=== PATIENT | female | born 1960 | race Caucasian/White ===

== ENCOUNTER 2020-04-28 10:56 | Outpatient (CLI) | payer BC, SELFPAY ==
--- NOTE | 2020-04-28 09:30 | DI.RAD_ITS ---
EXAM: XR KNEE LT 2V AP,LAT and XR knee RT 2 V AP, LAT, and tunnel CLINICAL HISTORY: pain. TECHNIQUE: 2D digital imaging was performed. COMPARISON: CR XR KNEE RT 3V AP,LAT,GUME from 04/28/2020 FINDINGS: In the left knee, degenerative changes are present involving all 3 joint compartments characterized b y periarticular spurring and mild narrowing of both the medial femoral tibial joint and the patellofe moral joint. In the right knee, moderately severe degenerative changes are present. There is periarticular spurri ng involving all 3 joint compartments. Moderate narrowing of the medial femoral tibial joint space a nd marked narrowing of the patellofemoral joint space are noted. No acute fracture or dislocation is present. No joint effusion is seen. The bones are normally mine ralized. IMPRESSION: Osteoarthritis of the knees. Right greater than left. DATA REPOSITORY: RADIATION DOSE DELIVERED:
== END 2020-04-28 11:16 ==
PROVIDERS: PCP Family Medicine; Referring Provider Family Medicine; Visit Provider Orthopaedic Surgery
DX: M25.561 Pain in right knee (principal); M25.562 Pain in left knee; M17.0 Bilateral primary osteoarthritis of knee
CPT/HCPCS: 73562; 73560

== ENCOUNTER 2020-05-14 01:40 | Outpatient (CLI) | payer BC, SELFPAY ==
[2020-05-14 10:43] LABS: Abs Immature Grans 0.02 k/cumm (0.0-0.09); Absolute Basophil Count 0.05 k/cumm (0.0-0.2); Absolute Eosinophil Count 0.27 k/cumm (0.0-0.7); Absolute Lymphocyte Count 1.62 k/cumm (1.2-3.4); Absolute Monocyte Count 0.78 k/cumm (0.11-0.7); Absolute Neutrophil Count 7.74 k/cumm (1.2-6.7); Basophils % 0.5; Eosinophils % 2.6; HCT 42.7 % (36.0-46.0); HGB 13.9 g/dL (12.0-15.5); Immature Grans % 0.2 %; Lymphocytes % 15.5; Mean Corp. HGB Concentration 32.6 g/dL (32.0-36.0); Mean Corpuscular Hemoglobin 31.6 pg (27.0-33.0); Mean Platelet Volume 10.3 fL (8.0-11.0); Monocytes % 7.4; Neutrophils % 73.8; Platelet Count 207 x1000/uL (130-400); RBC Distribution Width 13.3 % (11.7-14.6); White Blood Cell Count 10.48 k/cumm (4.4-10.8)
== END 2020-05-14 02:00 ==
PROVIDERS: PCP Family Medicine; Visit Provider Orthopaedic Surgery
DX: M25.561 Pain in right knee (principal); M17.11 Unilateral primary osteoarthritis, right knee
CPT/HCPCS: 36415; 85025

== ENCOUNTER 2020-05-14 09:09 | Outpatient (CLI) | payer BC, SELFPAY ==
[2020-05-14 22:26] LABS: COVID-19 RT-PCR UVMMC Result Negative (Negative)
== END 2020-05-14 09:29 ==
PROVIDERS: PCP Family Medicine; Visit Provider Orthopaedic Surgery
DX: Z01.818 Encounter for other preprocedural examination (principal); Z11.59 Encounter for screening for other viral diseases
CPT/HCPCS: U0003

== ENCOUNTER 2020-05-17 10:39 | Inpatient (IN) | payer BC, SELFPAY ==
[2020-05-17] VITALS (12 sets, daily range): BP systolic 131–181; BP diastolic 51–98; PULSE 74–84; RESP 12–20; TEMP 36.2–37.4; O2SAT 90–99
[2020-05-17] MEDS: Lactated Ringers 1,000 ML 80 ML IV ×2 (11:45→16:30)
[2020-05-17] MEDS: Bupivacaine LIPOSOME/PF 133 MG/10 ML VIAL IJ (12:50)
[2020-05-17] MEDS: Bupivacaine 0.25% Pres-Free 30 ML VIAL (12:50)
[2020-05-17] MEDS: ceFAZolin 2 GM/50 ML BAG IVPB ×2 (13:16→17:50)
[2020-05-17] MEDS: Hydrogen Peroxide 3% 480 ML BTL (13:52)
--- NOTE | 2020-05-17 16:20 | DI.RAD_ITS ---
EXAM: XR KNEE RT 2V AP,LAT CLINICAL HISTORY: check total knee components in RR. TECHNIQUE: 2D digital imaging was performed. COMPARISON: CR XR KNEE RT 3V AP,LAT,GUME from 04/28/2020 CR XR KNEE LT 2V AP,LAT from 04/28/2020 FINDINGS: The patient is now status post right total knee replacement. The orthopedic hardware appears in good position. No acute fracture or dislocation is seen. Postsurgical changes are seen in the soft tiss ues. IMPRESSION: Status post right total knee replacement. DATA REPOSITORY: RADIATION DOSE DELIVERED:
[2020-05-17] MEDS: fentaNYL 100 MCG/2 ML VIAL IVP (17:07)
[2020-05-17] MEDS: POTASSIUM CHLORIDE/0.9% NACL 1,000 ML 125 MEQ IV (17:50)
--- NOTE | 2020-05-17 18:24 | NUR.NOTE ---
Nursing Note:1731- pt transferred from PACU to medsur floor via orthopedic bed. pt awake and VSS. in room.
[2020-05-17] MEDS: oxyCODONE-CR 10 MG TABCR PO (20:29)
[2020-05-17] MEDS: Ketorolac 30 MG/ML VIAL IVP (20:29)
[2020-05-17] MEDS: Gabapentin 100 MG CAP PO (20:29)
[2020-05-17] MEDS: Docusate Sodium 100 MG CAP PO (20:29)
[2020-05-18] MEDS: ceFAZolin 2 GM/50 ML BAG IVPB ×4 (00:09→18:14)
[2020-05-18] MEDS: POTASSIUM CHLORIDE/0.9% NACL 1,000 ML 125 MEQ IV (02:39)
[2020-05-18] MEDS: Ketorolac 30 MG/ML VIAL IVP ×4 (02:39→20:52)
[2020-05-18 03:03] VITALS: BP 143/81; PULSE 76; RESP 18; TEMP 37; O2SAT 96
[2020-05-18 06:29] LABS: HCT 38.7 % (36.0-46.0); HGB 12.4 g/dL (12.0-15.5); Mean Corpuscular Hemoglobin 31.3 pg (27.0-33.0); Mean Corpuscular Volume 97.7 fL (80-95); Mean Platelet Volume 10.5 fL (8.0-11.0); Platelet Count 197 x1000/uL (130-400); RBC 3.96 m/cumm (4.00-5.20); RBC Distribution Width 13.2 % (11.7-14.6); White Blood Cell Count 13.09 k/cumm (4.4-10.8)
[2020-05-18 07:42] VITALS: BP 118/71; PULSE 66; RESP 20; TEMP 37.1; O2SAT 97
[2020-05-18] MEDS: Multivitamin w/Minerals TAB 1 TAB PO (08:10)
[2020-05-18] MEDS: oxyCODONE-CR 10 MG TABCR PO ×2 (08:10→20:51)
[2020-05-18] MEDS: Gabapentin 100 MG CAP PO ×3 (08:11→20:52)
[2020-05-18] MEDS: Pantoprazole 40 MG TABCR PO (08:11)
[2020-05-18] MEDS: Docusate Sodium 100 MG CAP PO ×3 (08:11→20:51)
[2020-05-18] MEDS: Loratidine 10 MG TAB PO (08:12)
[2020-05-18] MEDS: HYDROcodone 5/Acetaminophen 325 TAB PO ×2 (10:00→18:13)
--- NOTE | 2020-05-18 10:23 | PDOC.CMIN ---
- If Service Date Differs Date of service: 05/18/20 Time of Service: 10:23 Care Management Initial Assess REASON FOR HOSPITALIZATION:: R Total Knee PAST MEDICAL HISTORY/PAST SURGICAL HISTORY:: Medical History (Updated 05/12/20 @ 15:25 by Rock Brenner). Asthma (Chronic). History of esophageal reflux (Acute). Surgical History (Updated 05/13/20 @ 08:10 by Mary Anne iHnojosa). History of tonsillectomy and adenoidectomy (Acute). Hx of wisdom tooth extraction (Acute). Status post emergency hysterectomy (Acute) PREVIOUS FUNCTIONAL STATUS/SOCIAL/FAMILY SUPPORTS:: Delmy lives in [place] with her spouse, Tiffany. Her grandson lives with them as well. Her daughter and son in law live in the adjoining apartment. She works at [employer] in [place], [place]. She is independent at baseline. CURRENT FUNCTIONAL STATUS:: Delmy was sitting up in bed when CM met with her. She stated that she is feeling well, but she was not able to feel her feet this morning. This is, per report, due to the block that she had surgically, that has not worn off yet. Her was visiting with her earlier, who is her main support at home. She stated that she will feel ready to go once she is more stable on her feet. CM will continue to follow. ADVANCE DIRECTIVES:: None on file. Has patient been provided with info about the portal/API?: No Did the patient sign up for the portal?: No CODE STATUS:: Full Code INSURANCE COVERAGE / FINANCIAL ISSUES:: [employer]BS CURRENT HOME/COMMUNITY SERVICES/EQUIPMENT:: Delmy has a FWW and a 4WW at home, as well as grab bars and a shower chair. She does not have any services in the community. PRIMARY CARE PHYSICIAN:: Fernando Garcia POTENTIAL DISCHARGE NEEDS:: Follow up appointment. PATIENT/FAMILY EDUCATION NEEDS:: Review discharge instructions regarding activity levels and medications, discussion of self care needs including ask me three. ANTICIPATED BARRIERS TO DISCHARGE:: None identified at this time. TRANSPORTATION:: Delmy will be driven home via private vehicle by her . PLAN:: Anticipate Delmy will return home with no additional services once she has been medically cleared. She will follow up with Ortho, as recommended. Her will drive her home via private vehicle. CM will continue to follow.
--- NOTE | 2020-05-18 10:34 | PT.INIE ---
PT Notes Visit Reasons: R TOTAL KNEE SURG Inpatient Physical Therapy Evaluation Date: 05/18/2020 Referring Doctor: See Sena MD PT Orders: PT CONSULT: Status post right TKA Precautions: Falls Patient Profile/Admitting Diagnosis: 60-year-old female with osteoarthritis of the knees status post right TKA postop day #1 PMHX: Refer to Dr. Sena's problem and medication list Social History/Home Situation: Works full-time at [employer] in [place], owns her own home with her partner. She has 3 steps into the home with a railing, and her bedroom and bathroom are on the first floor. Current Functional Limitations: We will initially require assistance with dressing and bathing along with meals, etc. Equipment Owned/DME: Bathroom has a combo shower tub with a seat and flexible shower hose Subjective: Patient planes of continued discomfort throughout the right calf along with numbness throughout a stocking distribution of her right lower leg Objective: [] General Observation: Pleasant, cooperative and no abnormal pain behavior Mental Status: Alert and oriented x3 Pain: 5/10 on a VAS throughout the right calf ROM: As functional range of motion throughout her extremities other than her right knee at -10 -80 degrees with mild end range drawing station throughout the posterior aspect of the knee with extension, and the anterior aspect the knee with flexion. Endrange dorsiflexion of the right ankle with the knee extended creates some mild drawing throughout the popliteal fossa and calf. Negative Homans sign Strength: Has full motor control throughout including her right EHL, EDC, peroneals, anterior and posterior tib. She has approximately 10 degree extension lag, right knee. Sensation: She has diminished sensation light touch throughout a stocking distribution of the right lower leg. Lacking proprioception of the digits right foot Bed Mobility/Transfers: Requires minimal assist with her right lower extremity when assuming the supine sitting positions and vice versa, and when assuming the sitting to standing position and vice versa. She is independent with adjusting her body in bed Gait: Ambulate approximately 30 feet with a wheeled walker, weightbearing as tolerated on the right lower extremity with minimal contact guarding. Her gait was characterized by an uneven stride, right greater than left, and she was visually observing her right foot due to sensory loss. Balance: [] Static Sitting: Normal Dynamic Sitting: Normal Static Standing: Normal Dynamic Standing: Good Special Tests: Mobility Limitations Standardized Measure [employer] AM-PAC 6 clicks Basic Mobility Inpatient Short Form: Raw Score: 17 standardized Score: 42.13 CMS Score: 50.57% [] CMS Modifier: CK Informed Consent/Education: Patient instructed in purpose of PT consult and plan of care. Assessment: Patient is a 60 year old female referred to physical therapy services with the diagnosis of right TKA. Patient presents with clinical signs and symptoms consistent with right TKA, as demonstrated by the following impairment level findings: Mild assist with her bed mobility activities and ambulation. Impairments are contributing to the following functional limitations: AMPAC score. Patient is assessed as a [] Low 12753 complexity based on the following: History: See comorbidities and social history Examination: See above for functional mutations impairments Presentation: Stable Decision Making: Low complexity based on her clinical findings Goals: Goals X1 week 1. Supine-Sit independent 2. Sit-Supine independent 3. Sit-Stand independent 4. Stand-Sit independent 5. Bed-Chair independent 6. Chair-Bed independent 7. Gait independent ambulation with a wheeled walker for greater than 50 feet weightbearing as tolerated on right lower extremity 8. Stairs ascend and descend 3 steps 9. Independent with home exercise program Plan of Care/Treatment Plan: 1-2x/day, 7 days/week x 1 week. Plan of care has been reviewed with the SPEECH AND LANGUAGE SPECIALIST providing the service under Physical Therapy direction. Initiate Physical Therapy intervention for strengthening, bed mobility, transfers, gait, stairs, balance training, use of assistive device. Patient was issued a written illustrated home exercise program consisting of frequent quad and gluteal sets, ankle pumping, supine straight leg raises, and a gentle prolonged stretch into the right knee flexion and extension to tolerance. DISCHARGE RECOMMENDATIONS: Home TREATMENT CODE/TIME: 9716 11/27 7109 Disclaimer: This note was created using [employer] voice recognition software. It was reviewed for major content. However, there may be multiple small discrepancies and errors due to the voice recognition aspects of the software.
[2020-05-18 11:12] VITALS: BP 109/72; PULSE 72; RESP 20; TEMP 36.4; O2SAT 96
--- NOTE | 2020-05-18 12:11 | W.NUTRFU ---
Date of service: 05/18/20 Time of Service: 12:11 Nutritional Follow up NOTE: 60 year old female s/p right knee replacement. Following regular meal plan with adequate intake (>75%). BMI indicates class 2 obesity. Labs/Meds reviewed. Tolerating current diet and meeting nutrient/fluid needs. Not at risk for nutritional decline. Time Spent in Nutritional Counseling and Treatment: 0 time spent
--- NOTE | 2020-05-18 13:13 | W.PM.PROGNOT ---
Date of Service Date of service: 05/18/20 Time of Service: 13:13 Assessment and Plan Assessment and plan (1) Osteoarthritis of right knee: Status: Chronic Assessment and plan: Assessment: Stable postop day #1 right total knee replacement. She is doing well in terms of her mobility and pain. I think that is soon as her block wears off fully and she has better control of her right lower leg should be able to go home. This will probably be tomorrow. Plan: Continue mobilize with PT per protocol. Reassess tomorrow. She will probably be discharged home then. Qualifiers: Osteoarthritis type: primary Qualified Code(s): M17.11 - Unilateral primary osteoarthritis, right knee Subjective Subjective Interval history since last seen: She does not have any pain because her block has not worn off yet. Her foot is numb but it is gradually recovering sensation. She is independent getting out of bed and is able to walk in the iniguez. She is just little unsure of herself because she cannot feel her foot when she steps on it. Exam Narrative Exam Narrative: She has full recovery motor function in the right lower extremity. Still has stocking glove Karimi is out she has not urinated yet. She can do an active straight leg raise with about a 20 degree lag. Hemoglobin is 12.4 g today. Objective Objective Clinical Data: Abnormal lab results 05/18/20 Range/Units 06:00 WBC 13.09 H (4.4-10.8) k/cumm RBC 3.96 L (4.00-5.20) m/cumm MCV 97.7 H (80-95) fL Vital Signs Temperature 36.4 C L 05/18/20 11:12 Temperature Source Tympanic 05/18/20 11:12 Pulse 72 05/18/20 11:12 Pulse Rhythm Regular 05/18/20 07:13 Respiratory Rate 20 05/18/20 11:12 Respiratory Effort Non-Labored 05/18/20 07:13 Respiratory Depth Normal 05/18/20 07:13 Respiratory Pattern Normal 05/18/20 07:13 Blood Pressure 109/72 05/18/20 11:12 Pulse Oximetry 96 05/18/20 11:12 Respiratory End-tidal CO2 35 05/17/20 17:20 Oxygen Delivery Method Room Air 05/18/20 11:12 Oxygen Flow Rate 0 05/18/20 11:12 Pain Level 1 05/18/20 11:12 Intake & Output 05/17/20 05/18/20 05/18/20 23:59 11:59 23:59 Intake Total 1356.667 / 0875.155 9575.667 / 2382.667 Output Total 220 / 220 2049 Balance 1136.667 / 1136.667 332.667 / 332.667 Intake: IV 1326.667 / 4359.985 3611.667 / 1842.667 Oral 540 / 540 Output: Urine 200 / 200 2049 Estimated Blood Loss Other: Urine Color Yellow Yellow Urine Appearance Clear Clear Emesis Description None Laboratory Results WBC 13.09 k/cumm (4.4-10.8) H 05/18/20 06:00 RBC 3.96 m/cumm (4.00-5.20) L 05/18/20 06:00 Hgb 12.4 g/dL (12.0-15.5) 05/18/20 06:00 Hct 38.7 % (36.0-46.0) 05/18/20 06:00 MCV 97.7 fL (80-95) H 05/18/20 06:00 MCH 31.3 pg (27.0-33.0) 05/18/20 06:00 MCHC 32.0 g/dL (32.0-36.0) 05/18/20 06:00 RDW 13.2 % (11.7-14.6) 05/18/20 06:00 Plt Count 197 x1000/uL (130-400) 05/18/20 06:00 MPV 10.5 fL (8.0-11.0) 05/18/20 06:00
--- NOTE | 2020-05-18 13:42 | PHA.REVIEW ---
Pharmacy Admission Review - Admission Clinical Review No Known Allergies Allergy (Verified 05/17/20 11:07) R total knee surgery Height 5 ft 4 in Weight 103.4 kg - Renal Dosing Medications needing adjustments: N/A (no labs) - Anticoagulation Anticoagulation: Hgb 12.4 g/dL (12.0-15.5) 05/18/20 06:00 Hct 38.7 % (36.0-46.0) 05/18/20 06:00 Plt Count 197 x1000/uL (130-400) 05/18/20 06:00 DVT Prohphylaxis: Reviewed Medications: Enoxaparin - Opiate Usage Evaluate Pain Scale/Pains Meds: Reviewed Scheduled Bowel Reg ordered if on Opiates?: Yes - Relevant Labs Electrolytes, C-Reactive P, ESR: N/A - DM Control Insulin Dosing: N/A - Heart Failure/NC EF%, ALEXANDRU's, B-Blockers, Diuretics: N/A - BP Control BP Control: Blood Pressure 109/72 Blood Pressure 118/71 Blood Pressure 143/81 If elevated: N/A - Qtc Review If Elevated: N/A - IV to PO Switch IV Medications: N/A - Home Meds Home Med List reviewed: Reviewed Relevent Home Meds Not ordered & why?: ibuprofen (has ketorolac ordered), glucosamine/chondroitin - Current meds Current Medication Order Review: Reviewed
--- NOTE | 2020-05-18 13:43 | CHAPLAIN ---
Delmy was in bed when I visited. I introduced myself and explained my role and offered support. Delmy told me about her surgery yesterday. She had a visitor with her. She was not interested in further conversation.
[2020-05-18] MEDS: POTASSIUM CHLORIDE/0.9% NACL 1,000 ML 60 MEQ IV (13:54)
--- NOTE | 2020-05-18 14:13 | PT.INTREAT ---
Date of service: 05/18/20 Time of Service: 14:13 PT Notes Visit Reasons: R TOTAL KNEE SURG Inpatient Physical Therapy Treatment Note [facility] Date: 05/18/20 PRECAUTIONS: WBAT R SUBJECTIVE: Mary is agreeable to participating in PT. She reports that she is still unable to feel her R foot, and that when she walks it feels like stepping into a hole and it's a spongy feeling. She believes her confidence and gait mechanics will improve dramatically when feeling returns to her R foot. OBJECTIVE: PAIN: No c/o pain BED MOBILITY/TRANSFERS Supine-sit: I with HOB flat Sit-supine: I with HOB flat Sit-stand: SBA Stand-sit: SBA GAIT Assistive Device: FWW Weight bearing: WBAT R Assist: SBA Distance: 60' Deviation: R foot numbness, knee immobilizer in place THEREX: Patient completed a lower extremity strengthening and stabilization program, in a supine position, as per flow sheet. Patient demonstrates quad weakness with an inability to perform SLR without assist. ASSESSMENT: Patient tolerated session well without c/o pain. Patient was able to tolerate a progression in gait distance with FWW support and SBA, although utilizes a step-to pattern due to R foot numbness. Patient would benefit from continued gait training for improved gait mechanics, as well as continued ther ex for improved lower extremity strength. PLAN: Continue with PTs POC TREATMENT CODE/TIME: 25 minutes; 41811, [id number]
[2020-05-18 15:28] VITALS: BP 93/60; PULSE 89; RESP 18; TEMP 36.8; O2SAT 94
[2020-05-18] MEDS: Enoxaparin 40 MG/0.4 ML SYR SC (18:13)
[2020-05-18 19:55] VITALS: BP 124/76; PULSE 88; RESP 20; TEMP 37; O2SAT 96
[2020-05-18 23:32] VITALS: BP 161/69; PULSE 79; RESP 18; TEMP 37; O2SAT 97
[2020-05-19 02:29] VITALS: BP 137/77; PULSE 72; RESP 18; TEMP 36.9; O2SAT 94
[2020-05-19] MEDS: Ketorolac 30 MG/ML VIAL IVP ×2 (03:32→09:05)
[2020-05-19 06:15] LABS: HCT 35.2 % (36.0-46.0); Mean Corp. HGB Concentration 31.3 g/dL (32.0-36.0); Mean Corpuscular Hemoglobin 31.1 pg (27.0-33.0); Mean Corpuscular Volume 99.4 fL (80-95); Mean Platelet Volume 10.5 fL (8.0-11.0); Platelet Count 158 x1000/uL (130-400); RBC 3.54 m/cumm (4.00-5.20); RBC Distribution Width 13.5 % (11.7-14.6); White Blood Cell Count 7.58 k/cumm (4.4-10.8)
[2020-05-19 07:26] VITALS: BP 137/69; PULSE 72; RESP 18; TEMP 37.2; O2SAT 95
[2020-05-19] MEDS: Pantoprazole 40 MG TABCR PO (08:49)
[2020-05-19] MEDS: Docusate Sodium 100 MG CAP PO (08:49)
[2020-05-19] MEDS: Gabapentin 100 MG CAP PO ×2 (08:49→13:42)
[2020-05-19] MEDS: Multivitamin w/Minerals TAB 1 TAB PO (08:49)
[2020-05-19] MEDS: Loratidine 10 MG TAB PO (08:50)
[2020-05-19] MEDS: Normal Saline Flush 10 ML SYR IV (09:13)
--- NOTE | 2020-05-19 10:15 | PTTR_ITS ---
Date of service: 05/19/20 Time of Service: 10:16 PT Notes Visit Reasons: POST-OP R TOTAL KNEE Inpatient Physical Therapy Treatment Note [facility] Date: 05/19/20 PRECAUTIONS: WBAT R SUBJECTIVE: Mary is agreeable to participating in PT. She reports that she has some tingling in her R foot today, and that she feels it is making a difference in her gait compared to yesterday. Prior to PT session, she d iscusses the possibility of going home today. OBJECTIVE: PAIN: No c/o pain BED MOBILITY/TRANSFERS Supine-sit: I Sit-supine: I Sit-stand: S Stand-sit: S GAIT Assistive Device: FWW Weight bearing: WBAT R Assist: SBA Distance: 200' + 150' Deviation: R foot numbness and tingling, knee immobilizer in place, seated rest x1, wheelchair follow, step through instruction THEREX: Patient completed a lower extremity strengthening and stabilization program, in a supine position, as per flow sheet. Patient demonstrates approximately 20 degrees lag, indicating quad weakness with an inability to perform SLR without assist. ASSESSMENT: Patient tolerated session well without c/o pain. Patient was able to tolerate a progression in gait distance with FWW support and SBA, although continues to utilize a step-to pattern due to R foot numbness/tingling. Patient would benefit from continued gait training for improved gait mechanics, as well as continued ther ex for improved lower extremity strength. PLAN: Continue with PTs POC TREATMENT CODE/TIME: 25 minutes; 19138, [id number]
[2020-05-19 11:38] VITALS: BP 132/83; PULSE 83; RESP 18; TEMP 36.9; O2SAT 95
--- NOTE | 2020-05-19 13:33 | W.PM.DS.N ---
Date of service: 05/19/20 Time of Service: 13:33 DS: Diagnosis Discharge Diagnosis (1) Osteoarthritis of right knee: Status: Chronic Discharge Plan Disposition Patient Disposition: HOME Condition: Good Discharge Details Reason For Visit: R TOTAL KNEE REPLACEMENT Admit Date/Time: 05/17/20 10:39 Admit Provider: See Sena Attending Provider: See Sena Primary Care Provider: Fernando Garcia Hospital Course Hospital Course: Patient was taken to the operating room on day of admission 05/17/2020, where she underwent a right total knee replacement without complications. Postoperatively she was mobilized per protocol for total knee replacement. Karimi was discontinued on first postop day and she was able to void independently. Postop hemoglobin stabilized at 11 g on postop day #2. Femoral nerve block lasted until a second postop day. She had good relief of pain and required minimal p.o. narcotics. By 05/19/2020 she was fully independent with transfers and ambulation with a walker. She was afebrile. She was eating and drinking well. She did experience some loose stools. It was felt that she had completed acute care goals and was ready for discharge home. Home Meds and New Rx's Prescriptions: New celecoxib [Celebrex] 200 mg capsule 200 mg PO BID Qty: 20 RF: 0 hydrocodone-acetaminophen 5-325 mg tablet 1 tab PO Q6H PRN (Reason: pain) Qty: 20 RF: 0 Continued ibuprofen 200 mg Tablet 800 mg PO PRN PRNRF: 0 loratadine 10 mg Tablet 10 mg PO DAILY RF: 0 glucosamine [id number] 750-375-400 mg Tablet 1 tab PO DAILY RF: 0 Discharge Instructions Additional Instructions: Elevate right leg when sitting. You no longer have to use the knee immobilizer splint when you can lift your right straight leg off the bed. Remove the Sree bandage and outside dressing from your right knee tomorrow. Leave the bottom dressing on. May then shower and get the dressing wet. Do not attempt to take the bottom dressing off, just let it fall off by itself over time. Apply Cryo/Cuff to right knee 4 times a day for an hour each time. Walk every day as much as your discomfort allows. Outpatient physical therapy on Sunday at [facility] for range of motion and strengthening of right total knee replacement. Follow-up with Dr. Sena in 2 weeks. Take 1 baby aspirin (81 mg) twice a day for 30 days to prevent blood clots in the legs. Wear elastic stockings during daytime only for 2 weeks. Take Celebrex twice a day for 10 days to decrease swelling and inflammation. Take hydrocodone for breakthrough pain, if needed. Use walker or cane as long as you limp. Referrals: See Sena MD [ [facility] ST[facility]FF PHYSICIAN] - (f/u in 2 weeks) Activity:: Activity as Tolerated Equipment/Supplies:: Walker Diet:: As Tolerated Discharge Orders Discharge Orders: Discharge Order (Routine); Ordered 05/19/20 Ordered By: See Sena DS: Summary Status at Discharge Functional status at discharge: uses cane/walker Overall status at discharge: patient is not back to baseline Mental Status: mental status grossly normal Speech and Movement: speech and movement normal Mood: congruent mood Affect: normal affect Exam Psych Mental Status: mental status grossly normal Speech and Movement: speech and movement normal Mood: congruent mood Affect: normal affect DS: Data Vitals/I&O Vitals and I&O: Vital Signs Temperature 36.9 C 05/19/20 11:38 Temperature Source Temporal Artery Scan 05/19/20 11:38 Pulse 83 05/19/20 11:38 Pulse Rhythm Regular 05/19/20 09:15 Respiratory Rate 18 05/19/20 11:38 Respiratory Effort Non-Labored 05/19/20 09:15 Respiratory Depth Normal 05/19/20 09:15 Respiratory Pattern Normal 05/19/20 09:15 Blood Pressure 132/83 05/19/20 11:38 Pulse Oximetry 95 05/19/20 11:38 Respiratory End-tidal CO2 35 05/17/20 17:20 Oxygen Delivery Method Room Air 05/19/20 11:38 Oxygen Flow Rate 0 05/19/20 11:38 Pain Level 0 05/19/20 11:38 Comment 05/19/20 02:29 Intake & Output 05/18/20 05/19/20 05/19/20 23:59 11:59 23:59 Intake Total 570.333 / 2953.000 360 / 360 Output Total 1500 / 3550 600 / 600 Balance -929.667 / -597.000 -240 / -240 Intake: IV 570.333 / 2413.000 Oral 360 / 360 Output: Urine 1500 / 3550 600 / 600 Other: Urine Color Yellow Yellow Urine Appearance Clear Clear Clear Urine Odor None None Comment Void x1 in the toilet. Stool Size Small Stool Characteristics Liquid Voiding Methods Toilet Toilet Toilet Data Completed and Pending Labs on day of discharge: Labs from last 24 hours 05/19/20 06:02 WBC 7.58 D RBC 3.54 L Hgb 11.0 L Hct 35.2 L MCV 99.4 H MCH 31.1 MCHC 31.3 L RDW 13.5 Plt Count 158 MPV 10.5 PFSH Medical History (Updated 05/18/20 @ 13:17 by See Sena MD) Asthma (Chronic) History of esophageal reflux (Acute) Surgical History (Updated 05/18/20 @ 13:16 by See Sena MD) History of tonsillectomy and adenoidectomy (Acute) Hx of wisdom tooth extraction (Acute) Status post emergency hysterectomy (Acute) pt. denies Social History Smoking/Tobacco Use Status: Former Tobacco Use Drug use: Never Current gender identity: female
[2020-05-19] MEDS: Acetaminophen 325 MG TAB 650 MG PO (13:42)
--- NOTE | 2020-05-19 14:28 | ROE_ITS ---
Date of service: 05/17/20 Time of Service: 14:28 Operative Note Operative Note DATE OF PROCEDURE: 05/17/20 PRE-OP DIAGNOSIS: Osteoarthritis right knee POST-OP DIAGNOSIS: same PROCEDURE: Right total knee arthroplasty SURGEON: See Sena BILLING COLLECTIONS SPECIALIST: Radha Harrell ANESTHESIA: GETA PATHOLOGY: none sent TOURNIQUET TIME: 135 COMPLICATIONS: None Patient was transported to: PACU Patient's condition: stable Implants: Size 3 posterior cruciate substituting femoral component. Size 3 tibial component. Size 312.5 mm posterior cruciate substituting polyethylene insert. 38 mm tri-prong patella. Indications: Is a 60-year-old white female with a 5-day history of progressive right knee pain. Pain is increased to the point where it interferes with activities of daily living and just walking. Her pain is not respond to conservative treatment. Total knee was therefore advised to alleviate her pain and restore some of her previous amatory abilities. The risk and complications of the procedure been explained to patient detail preop. Procedure Description: Patient was taken the operating room on the day of admission 05/17/2020, and placed supine operating table. Femoral nerve block was administered. A general anesthetic was then administered. Proximal tourniquet was applied to the right upper thigh. The right lower extremity was prepped from toes to tourniquet and draped free in usual sterile fashion. Under proximal tourniquet control an anterior midline incision was made beginning about 4 inches proximal to the patella and extending distally to the tibial tubercle. Incision was carried down through the skin and subcu to the fascia. Subcutaneous veins were cauterized. A medial parapatellar capsular incision was then made in the right knee and the incision was carried proximally longitudinally in the midline of the quadriceps tendon. Complete subperiosteal release was performed medially. Patella was everted. Medial and lateral menisci were excised. Anterior cruciate and posterior cruciate ligament was sacrificed. Using intramedullary guides and jigs the distal femur was resected. She was found to require a size 3 femoral component. Using extra medullary alignment guides and jigs the proximal tibia was resected. She was found to require a size 3 tibial component. The keel for the tibial component was then reamed and punched on proper rotation alignment. Trial reduction at this point showed excellent stability to varus valgus stressing from 0 to 90 degrees of flexion using a 12.5 mm insert. Finally the patella was resected using patellar resection guide. 16 mm thickness of patella remained after resection. Using sizing guides a 38 mm triplane patella was found to be the proper size. Using the drill guide the holes for the pegs and the component were drilled out in proper rotation alignment. The proximal tibia was prepared for cementing using pulse irrigation lavage of saline solution and drying with peroxide soaked strip sponges. One batch of gentamicin impregnated methylmethacrylate was vacuum mixed and hand packed into the prepared tibia. Soft cement was packed onto the undersurface of the tibial component. The tibial component was then inserted by hand in proper alignment. Impactor mallet was then used to further see the tibial component. Excess air was trimmed from the margin of the tibial component with the plastic cement removal tool while cement still soft. Trial components were inserted and the knee was extended further pressurized the tibial component. Knee was kept extended till the first batch of methylmethacrylate had cured. The trial components were removed posterior recesses were checked and residual cement debris was removed at this point. The distal femur and patella were prepared for cementing with pulse irrigation lavage of saline solution and drying with peroxide soaked strip sponges. Another batch of gentamicin impregnated methylmethacrylate was vacuum mixed and hand packed onto the prepared femur and patella. Soft cement was packed on the undersurface of the patella component and femoral component. Femoral component was inserted and impacted in place with impactor mallet and further pressurized using a trial insert and extending the knee. Patella component was inserted and pressurized using the patella clamp. Excess cement was trimmed from the margins of the patella component and femoral component using the plastic cement removal tool while the cement was still soft. When the second batch of gentamicin impregnated methylmethacrylate had cured trial insert was removed. Posterior recesses were checked and any residual cement debris was removed at this point. The knee was irrigated with pulse irrigation of a saline solution. The actual insert size 312.5 mm thick posterior cruciate substituting polyethylene insert was then placed into the tibial component and reduced on the femoral condyles. Patella tracking using the rule of no thumb showed anatomic tracking of the patella. The right knee was flexed that was soft goods and closure was begun. The wound margins were infiltrated 0.5% Marcaine with epinephrine solution. The medial capsule and the incision of the quad tendon was repaired with interrupted [id number] sutures of #1 Vicryl suture material. Subcu was approximated interrupted 2-0 Vicryl sutures and skin edges approximated with a running subcuticular suture of 3-0 Monocryl supplemented with tissue glue. Mepilex dressing was applied. ABD pads wrapped with 6 inch Sree bandages were then placed over the incision. Tourniquet was released. Patient received 1 g of tranexamic acid prior to tourniquet inflation and 1 g of tranexamic acid after tourniquet deflation. Patient also received 2 g of Ancef prior to tourniquet inflation. A knee immobilizer splint was placed over the right knee. Patient's anesthesia was reversed complications blood loss is minimal you due to tourniquet use. Patient was discharged to recovery room in good condition
--- NOTE | 2020-05-19 14:29 | PDOC.CMDIS ---
- If Service Date Differs Date of service: 05/19/20 Time of Service: 14:29 LACE Index Scoring Tool - Questions: Length of Stay (in days): 3 Acuity (Admit via E.D.?): No E.D. Visits: 0 - Answers: Total Score: 3 Risk of Readmission: Low Risk Care Management Discharge Reason for Hospitalization: R Total Knee Discharge Plan: Delmy will return home with no additional services at this time. She will follow up with Ortho, as recommended. Her will drive her home via private vehicle. She is happy to be returning home. Patient/Family Education Needs: Review discharge instructions regarding activity levels and medications, discussion of self care needs including ask me three.
--- NOTE | 2020-05-19 15:15 | NUR.NOTE ---
Nursing Note: I have read and approve of the charting of Robin Gottlieb RN
--- NOTE | 2020-05-19 15:28 | NUR.NOTE ---
Nursing Note: I have reviewed the charting and reviewed it with Robin Gottlieb RN
--- NOTE | 2020-05-19 16:01 | INDS_ITS ---
Date of service: 05/19/20 Time of Service: 16:01 PT Notes Visit Reasons: R TOTAL KNEE REPLACEMENT Inpatient Physical Therapy Discharge Summary Dates: 05/19/2020 Dates of Service: 05/18/2020 through 05/19/2020 This is a clinical summary of care provided on the duration of dates listed above. No charge was made in the completion of this documentation. Referring Doctor: See Sena MD PT Orders: PT CONSULT: Status post right TKA Precautions: Falls Patient Profile/Admitting Diagnosis: 60-year-old female with osteoarthritis of the knees status post right TKA postop day #1 PMHX: Medical History (Updated 05/12/20 @ 15:25 by Rock Brenner) Asthma (Chronic) History of esophageal reflux (Acute) Surgical History (Updated 05/13/20 @ 08:10 by Mary Anne Hinojosa) History of tonsillectomy and adenoidectomy (Acute) Hx of wisdom tooth extraction (Acute) Status post emergency hysterectomy (Acute) Social History/Home Situation: Works full-time at [employer] in [place], owns her own home with her partner. She has 3 steps into the home with a railing, and her bedroom and bathroom are on the first floor. Equipment Owned/DME: Bathroom has a combo shower tub with a seat and flexible shower hose Subjective: Patient refused a second session this afternoon as she was having several trips to the bathroom due to loose bowel movement. She did agree to be seen later in the afternoon but was not seen as patient was already discharged from the hospital. Objective: General Observation: Knee immobilizer on in the right LE Mental Status: Alert and oriented x4 Sensation: Continues to complain of numbness and tingling on the right foot. ROM: Right Upper Extremity: Shoulder Flexion WFL. Shoulder abduction WFL. Elbow flexion WFL. Wrist flexion WFL. Functional opening and closing of hand WFL. Left Upper Extremity: Shoulder Flexion WFL. Shoulder abduction WFL. Elbow flexion WFL. Wrist flexion WFL. Functional opening and closing of hand WFL. Right Lower Extremity: Hip flexion WFL. Hip abduction WFL. Knee flexion WFL. Ankle dorsiflexion WFL. Ankle plantarflexion WFL. Left Lower Extremity: NT prior to today's discharge STRENGTH: Right Upper Extremity: Grossly 4/5 Left Upper Extremity: Grossly 4/5 Right Lower Extremity: Hip and knee manual muscle strength not tested prior to hospital discharge. Left Lower Extremity: Grossly 4/5 Bed Mobility/Transfers: Supine to sit independent Sit to supine independent Sit to stand supervision Stand to sit supervision Bed to chair supervision Chair to bed supervision Gait: Per CLINICAL QUALITY ASSURANCE SPECIALIST note this morning, patient ambulated approximately 200' feet with a wheeled walker, weight bearing as tolerated on the right lower extremity with SBA. Step through gait pattern with wheelchair follow provided. Reported nu mbness and tingling on the right foot which limited awareness and affected level of confidence inpatient. Patient required contact-guard assist in negotiating three 4 inch steps and two 6 inch steps with step to gait pattern while holding onto a rail and a single-point cane with the other hand buckling of the right LE seen. Balance: Static Sitting: Normal Dynamic Sitting: Normal Static Standing: Fair Dynamic Standing: Fair Assessment: Patient continues to demonstrate functional mobility decline due to postoperative status and will require use of a front wheeled walker to maximize independence and reduce fall risk at home. Goals: Goals X1 week 1. Supine-Sit independent MET 2. Sit-Supine independent MET 3. Sit-Stand independent MET 4. Stand-Sit independent NOT MET 5. Bed-Chair independent NOT MET 6. Chair-Bed independent NOT MET 7. Gait independent ambulation with a wheeled walker for greater than 50 feet weightbearing as tolerated on right lower extremity NOT MET 8. Stairs ascend and descend 3 steps NOT MET 9. Independent with home exercise program NOT MET DISCHARGE RECOMMENDATIONS: Home. OP PT services per orthopedic surgeon's timeline recommendations. TREATMENT CODE/TIME: NC. Thank you very much for this referral. Laurie Mast PT, DPT, CLT [facility] at [place], [place]
== END 2020-05-19 14:30 | disposition home or self-care (01) | DRG 470 ==
LOC: PDS 10:40 → MS 17:30
PROVIDERS: Admitting Provider Orthopaedic Surgery; PCP Family Medicine; Visit Provider Orthopaedic Surgery
PROC: 0SRD0J9 Replacement of Left Knee Joint with Synthetic Substitute, Cemented, Open Approach (ICD-10-PCS; CPT 27447; principal; 2020-05-17 12:00)
DX: M17.11 Unilateral primary osteoarthritis, right knee (principal); M25.561 Pain in right knee; Z96.651 Presence of right artificial knee joint; J45.909 Unspecified asthma, uncomplicated
CPT/HCPCS: 27447; 36415; 76942; 85027; 97110; 97161; 97530; J1650; NC; 73560; J0131; J0690; J1100; J1885; J2001; J2250; J2405; J2704; J3010; L1830

== ENCOUNTER 2020-05-17 17:25 | Day surgery (SDC) | payer BC, SELFPAY | END 2020-05-17 17:45 | PROVIDERS: PCP Family Medicine; Visit Provider Orthopaedic Surgery | DX: R69 Illness, unspecified (principal) | CPT/HCPCS: J0131; J1100; J1885; J2001; J2405; J2704 ==

== ENCOUNTER 2021-05-16 08:50 | Outpatient (CLI) | payer BC, SELFPAY ==
--- NOTE | 2021-05-16 08:30 | DI.RAD_ITS ---
Exam(s) XR KNEE RT 2V AP,LAT EXAM: XR KNEE RT 2V AP,LAT CLINICAL HISTORY: annual f/u R TKA. TECHNIQUE: 2D digital imaging was performed. COMPARISON: CR XR KNEE RT 2V AP,LAT from 05/17/2020 CR XR KNEE LT 3V AP,LAT,GUME from 05/16/2021 FINDINGS: Position alignment of the components of right knee prosthesis remain stable. And no fracture or obvi ous loosening evident. IMPRESSION: DATA REPOSITORY: RADIATION DOSE DELIVERED:
--- NOTE | 2021-05-16 08:30 | DI.RAD_ITS ---
Exam(s) XR KNEE LT 3V AP,LAT,GUME EXAM: XR KNEE LT 3V AP,LAT,GUME CLINICAL HISTORY: LEFT KNEE PAIN. TECHNIQUE: 2D digital imaging was performed. COMPARISON: CR XR KNEE LT 2V AP,LAT from 04/28/2020 CR XR KNEE RT 2V AP,LAT from 05/17/2020 FINDINGS: There is no evidence of left knee fracture on these 3 images. There is no lateral view so it is diff icult to assess for joint effusion. There are moderate tricompartmental osteoarthritic degenerative changes noted. Appears to be mild progression when compared to 1 year ago. No osseous lesions evide nt. IMPRESSION: DATA REPOSITORY: RADIATION DOSE DELIVERED:
== END 2021-05-16 08:51 | disposition home or self-care (01) ==
LOC: DIORS 08:51
PROVIDERS: PCP Family Medicine; Referring Provider Family Medicine; Visit Provider Student in an Organized Health Care Education/Training Program
DX: M25.562 Pain in left knee (principal); Z96.651 Presence of right artificial knee joint
CPT/HCPCS: 73562; 73560

== ENCOUNTER 2021-08-08 15:08 | Outpatient (REF) | payer BC, SELFPAY ==
[2021-08-09 16:39] LABS: COVID-19 RT-PCR UVMMC Result Negative (Negative)
== END 2021-08-08 15:09 | disposition home or self-care (01) ==
LOC: LBN 15:08
PROVIDERS: PCP Family Medicine; Visit Provider Physician Assistant Medical
DX: Z20.822 Contact with and (suspected) exposure to COVID-19 (principal)
CPT/HCPCS: U0003

== ENCOUNTER 2023-02-25 11:46 | Emergency (ER) | payer BC, SELFPAY ==
[2023-02-25 11:48] VITALS: BP 150/88; PULSE 89; RESP 20; TEMP 36.4; O2SAT 98
--- NOTE | 2023-02-25 11:54 | DI.RAD_ITS ---
Exam(s) XR FINGER RT RING EXAM: XR FINGER RT RING CLINICAL HISTORY: deformity dip post dog injury. TECHNIQUE: 2D digital imaging was performed of the right finger. Three views were obtained. PA/AP, oblique, and lateral views were obtained. COMPARISON: No exams were available for comparison FINDINGS: BONES: There is an acute comminuted fracture of the midshaft of the middle phalanx of the 4th finger. Posterior displacement and ulnar angulation of the distal fracture is noted. No bony destructive l esion is seen. JOINTS: No dislocation present. SOFT TISSUE: There is soft tissue swelling present. IMPRESSION: Acute displaced and angulated fracture of the middle phalanx of the 4th finger. DATA REPOSITORY: RADIATION DOSE DELIVERED:
[2023-02-25] MEDS: Lidocaine 1% Pres-Free 5 ML VIAL (12:50)
--- NOTE | 2023-02-25 13:34 | DI.VRAD_ITS ---
PROCEDURE INFORMATION: Exam: XR Right Finger(s) Exam date and time: 02/25/2023 12:08 PM Age: 62 years old Clinical indication: Injury or trauma; Other: Caught finger in dog collar; Blunt trauma (contusions or hematomas) and crushing; Right; Ring finger TECHNIQUE: Imaging protocol: Radiologic exam of the right fingers. 3image(s) are provided. Views: Minimum 2 views. COMPARISON: No relevant prior studies available. FINDINGS: Bones/joints: No dislocation is appreciated. There is a transverse impacted and slightly dorsally offset fracture of the 4th digit middle phalanx shaft. This demonstrates dorsal offset of the distal component as compared to the proximal component. There is some corresponding medial anatomic angulation of the distal aspect of this digit. No other displaced fracture is appreciated. There is some chronic degenerative spurring about the distal interphalangeal joints for example at the 3rd digit level distal interphalangeal joint. Soft tissues: No radiopaque foreign body or subcutaneous emphysema is appreciated. There is some soft tissue swelling most pronounced about the 4th digit. IMPRESSION: There is a transverse and dorsally offset fracture of the 4th digit middle phalanx demonstrated with the adjacent soft tissue swelling. Dictated and Authenticated by: Daniel Bar MD. Ordering:MICHAEL Fox MD
--- NOTE | 2023-02-26 17:52 | ED.GENADUL_ITS ---
Discharge Plan Disposition Patient Disposition: Home Condition: Stable Discharge Details Clinical Impression: Finger fracture, right Primary Care Provider: Fernando Garcia ED Provider: Dominique Gillespie Discharge Instructions Instructions: Finger Fracture (ED) Additional Instructions: Keep your splint in place Take ibuprofen and Tylenol as needed for pain Follow-up with orthopedics, if they do not call you on Sunday, call them for follow-up Referrals: Fernando Garcia [Primary Care Provider] - Norris Hernandes MD [ [facility] STAFF PHYSICIAN] - Discharge Data Discharge Date/Time-TO BE ENTERED AT DEPARTURE: 02/25/23 12:58 Medical Decision Making 61-year-old female presents with finger injury X-ray was ordered for further evaluation with acute angulated fracture noted I did perform reduction of the angulation after injecting lidocaine for digital block, 3 cc were injected The finger angulation was then reduced without incident, remains neurovascularly intact, placed in aluminum foam splint and referral to orthopedics HPI General Date/Time Provider Initiated Documentation: 02/25/23 11:54 . HPI Narrative: This 61-year-old female presents with right fourth digit injury after grabbing a dog collar. Denies any additional injuries. Otherwise reportedly healthy. States that her finger is deformed. Related Data Allergies Allergy/AdvReac Type Severity Reaction Status Date / Time No Known Allergies Allergy Verified 09/21/21 13:30 General Stated Complaint: Orthopedic ANTWAN: 3 PFSH All Active Problems (Updated 02/25/23 @ 12:53 by ULYSSES Gutierrez) Finger fracture, right (Acute) Osteoarthritis of left knee (Acute) Status post total knee replacement, right (Acute 05/17/20) Knee pain (Acute) Knee pain (Acute) Patellofemoral syndrome of both knees (Acute) Right > Left Osteoarthritis of right knee (Chronic) Medical History Asthma History of esophageal reflux Osteoarthritis of left knee Surgical History History of tonsillectomy and adenoidectomy Hx of wisdom tooth extraction Status post emergency hysterectomy pt. denies Social History Smoking/Tobacco Use Status: Former Tobacco Use Smoking risk assessment performed?: Yes Alcohol Intake: current Alcohol Intake frequency: holidays/special occasions only Drug use: Never Substance use type: does not use Current gender identity: female Do you feel safe at home: Yes Do you feel safe in your relationship?: Yes Exam Extrem Other: Right fourth digit with deformity to middle phalanx, neurovascularly intact Course Vital Signs Vital signs: Vital Signs Temperature 36.4 C 02/25/23 11:48 Pulse 89 02/25/23 11:48 Respiratory Rate 20 02/25/23 11:48 Blood Pressure 150/88 H 02/25/23 11:48 Pulse Oximetry 98 02/25/23 11:48 Temperature 36.4 C 02/25/23 11:48 Temperature Source Oral 02/25/23 11:48 Pulse 89 02/25/23 11:48 Respiratory Rate 20 02/25/23 11:48 Respiratory Effort Normal, Non-Labored 02/25/23 12:59 Blood Pressure 150/88 H 02/25/23 11:48 Blood Pressure Position Sitting 02/25/23 11:48 Pulse Oximetry 98 02/25/23 11:48 Oxygen Delivery Method Room Air 02/25/23 11:48 Oxygen Flow Rate 0 02/25/23 11:48 Pain Level 2 02/25/23 11:48
== END 2023-02-25 12:58 | disposition home or self-care (01) ==
PROVIDERS: Emergency Provider Physician Assistant; PCP Family Medicine
DX: S62.604A Fracture of unspecified phalanx of right ring finger, initial encounter for closed fracture (principal); W22.8XXA Striking against or struck by other objects, initial encounter
CPT/HCPCS: 26725; 99283; 73140; 99284

== ENCOUNTER 2023-03-01 09:45 | Outpatient (CLI) | payer BC, SELFPAY ==
--- NOTE | 2023-03-01 09:15 | DI.RAD_ITS ---
Exam(s) XR FINGER RT RING EXAM: XR FINGER RT RING CLINICAL HISTORY: F/U FX. TECHNIQUE: 2D digital imaging was performed. Three views. COMPARISON: CR,XR XR FINGER RT RING from 02/25/2023 FINDINGS: BONES: Improved alignment of fracture of the middle phalanx. no bony destructive lesion is seen. JOINTS: No dislocation present. SOFT TISSUE: Normal. Impression: Improved alignment of fracture of middle phalanx. DATA REPOSITORY: RADIATION DOSE DELIVERED:
== END 2023-03-01 09:46 | disposition home or self-care (01) ==
LOC: DIORS 09:45
PROVIDERS: PCP Family Medicine; Referring Provider Family Medicine; Visit Provider Physician Assistant
DX: S62.624D Displaced fracture of middle phalanx of right ring finger, subsequent encounter for fracture with routine healing; X58.XXXD Exposure to other specified factors, subsequent encounter
CPT/HCPCS: 73140

== ENCOUNTER 2023-03-05 09:49 | Outpatient (CLI) | payer BC, SELFPAY ==
--- NOTE | 2023-03-05 07:45 | DI.RAD_ITS ---
Exam(s) XR FINGER RT RING EXAM: XR FINGER RT RING CLINICAL HISTORY: right ring finger fracture. TECHNIQUE: 2D digital imaging was performed. COMPARISON: CR,XR XR FINGER RT RING from 02/25/2023 CR XR FINGER RT RING from 03/01/2023 and 02/25/2023 FINDINGS: 3 views Comminuted fracture in the middle phalanx of the 4th-ring finger is again noted, exhibiting minimal i f any significant change. There is also a nondisplaced fracture of the dorsal aspect of the base of the distal phalanx of the s yancy-4th finger. IMPRESSION: Fractures of the middle and distal phalanges as described above. DATA REPOSITORY: RADIATION DOSE DELIVERED:
== END 2023-03-05 09:50 | disposition home or self-care (01) ==
LOC: DIORS 09:49
PROVIDERS: PCP Family Medicine; Visit Provider Physician Assistant
DX: S62.624A Displaced fracture of middle phalanx of right ring finger, initial encounter for closed fracture; S62.664A Nondisplaced fracture of distal phalanx of right ring finger, initial encounter for closed fracture; X58.XXXA Exposure to other specified factors, initial encounter
CPT/HCPCS: 73140

== ENCOUNTER 2023-03-13 10:05 | Outpatient (CLI) | payer BC, SELFPAY ==
--- NOTE | 2023-03-13 08:05 | DI.RAD_ITS ---
Exam(s) XR FINGER RT RING EXAM: XR FINGER RT RING CLINICAL HISTORY: f/u fracture R ring finger. TECHNIQUE: 2D digital imaging was performed of the right finger. Three views were obtained. PA/AP, oblique, and lateral views were obtained. COMPARISON: CR,XR XR FINGER RT RING from 02/25/2023 CR XR FINGER RT RING from 03/05/2023 FINDINGS: BONES: There has been no change in alignment of the fractures involving the posterior aspect of the b ase of the distal phalanx of the ring finger or the fracture of the midshaft of the middle phalanx of the ring finger. No new fractures are identified. No bony destructive lesion is seen. JOINTS: No dislocation present. SOFT TISSUE: Mild persistent soft tissue swelling. IMPRESSION: Stable fractures involving the middle and distal phalanges of the right ring finger. DATA REPOSITORY: RADIATION DOSE DELIVERED:
== END 2023-03-13 10:06 | disposition home or self-care (01) ==
LOC: DIORS 10:05
PROVIDERS: PCP Family Medicine; Visit Provider Physician Assistant
DX: S62.624D Displaced fracture of middle phalanx of right ring finger, subsequent encounter for fracture with routine healing (principal); S62.664D Nondisplaced fracture of distal phalanx of right ring finger, subsequent encounter for fracture with routine healing; X58.XXXD Exposure to other specified factors, subsequent encounter; M79.89 Other specified soft tissue disorders
CPT/HCPCS: 73140

== ENCOUNTER 2023-03-26 08:45 | Outpatient (CLI) | payer BC, SELFPAY ==
--- NOTE | 2023-03-26 08:15 | DI.RAD_ITS ---
Exam(s) XR FINGER RT RING EXAM: XR FINGER RT RING CLINICAL HISTORY: RRF fx. TECHNIQUE: 2D digital imaging was performed. Three views. COMPARISON: CR XR FINGER RT RING from 03/13/2023 FINDINGS: There has been no change in the alignment of the fracture of the middle phalanx. No change in the no ndisplaced fracture at the base of the distal phalanx. IMPRESSION: Stable fracture alignment. DATA REPOSITORY: RADIATION DOSE DELIVERED:
== END 2023-03-26 08:46 | disposition home or self-care (01) ==
LOC: DIORS 08:45
PROVIDERS: PCP Family Medicine; Referring Provider Family Medicine; Visit Provider Physician Assistant
DX: S62.609A Fracture of unspecified phalanx of unspecified finger, initial encounter for closed fracture (principal)
CPT/HCPCS: 73140

== ENCOUNTER 2024-12-30 09:13 | Emergency (ER) | payer MEDICARE, SELFPAY ==
[2024-12-30 09:21] VITALS: BP 156/84; PULSE 85; RESP 16; TEMP 36.6; O2SAT 98
[2024-12-30 09:48] LABS: Bilirubin Large (Negative); Blood Negative (Negative); Clarity Clear (Clear); Glucose 100 mg/dL (Negative); Ketones Negative (Negative); Leukocyte Esterase Trace (Negative); Nitrite Negative (Negative); Specific Gravity 1.015 (1.005-1.025); pH 7.5 (5-8)
[2024-12-30 09:56] LABS: Bacteria Few HPF (Negative); C & S Indicated? No; Casts Negative LPF (Negative); Crystals Negative HPF (Negative); Epithelial Cells Moderate HPF (Negative); Mucus Trace (Negative); Other Cells Negative (Negative); RBC 0-2 HPF (0-2)
--- NOTE | 2024-12-30 10:15 | DI.RAD_ITS ---
Exam(s) XR CHEST 2V PA LATERAL EXAM: XR CHEST 2V PA LATERAL CLINICAL HISTORY: cough. TECHNIQUE: 2D digital imaging was performed. COMPARISON: No exams were available for comparison FINDINGS: 2 views: Heart size is normal. The mediastinum is not widened. Lungs are clear. No infiltrates nor pleural effusions. IMPRESSION: No acute pulmonary findings. DATA REPOSITORY: RADIATION DOSE DELIVERED:
--- NOTE | 2024-12-30 10:28 | W.ED.GENAD ---
Discharge Plan Disposition Patient Disposition: Against Medical Advice Condition: Serious Condition: Stable Discharge Details Chief Complaint: Urinary Clinical Impression: Hyperbilirubinemia Primary Care Provider: Fernando Garcia ED Provider: Miles Wasserman Home Meds and New Rx's Prescriptions: No Action No Known Home Meds Discharge Instructions Additional Instructions: You have signs of liver dysfunction which could be from fatty deposits. I would recommend ceasing alcohol altogether. I would avoid acetaminophen/Tylenol. I placed you on her follow-up list to try and get established with a primary care provider soon as possible. If you feel more ill, have high fevers or severe abdominal pain return to the emergency department for reevaluation. HPI General Mode of arrival: ambulatory. Date/Time Provider Initiated Documentation: 12/30/24 09:55. Limitations to Documentation: no limitations. Information obtained by: patient. History of Present Illness 64 year old F presents to the emergency department with the chief complaint of cough and dark urine, described as moderate, Patient started experiencing this week(s) (3) and it has been constant. No relieving factors improve symptom(s), No exacerbating factors reported . Patient notes denies fever/chills and shortness of breath. Patient did receive the following treatments prior to arrival, none Related Data Home Medications ?Medication ?Instructions ?Recorded ?Confirmed Unknown [No Known Home Meds] 03/01/23 12/30/24 Allergies Allergy/AdvReac Type Severity Reaction Status Date / Time No Known Allergies Allergy Verified 12/30/24 09:20 General Stated Complaint: Urinary ANTWAN: 3 Review of Systems All systems reviewed & are unremarkable except as noted in HPI and below Constitutional Constitutional: Denies chills and Denies fever(s) Cardiovascular Cardiovascular: Denies chest pain and Denies dyspnea Respiratory Respiratory: Reports cough and Denies dyspnea Gastrointestinal Gastrointestinal: Denies abdominal pain, Denies nausea and Denies vomiting Genitourinary Genitourinary: Reports hematuria and Denies dysuria Psychiatric Psychiatric: Denies depression Exam Const General: no acute distress Orientation: alert HENCO Head: normal to inspection Ears: external ears normal General nose exam: external nose normal Mouth: moist mucous membranes Neck Neck: normal visual inspection Resp Effort & Inspection: normal respiratory effort and able to speak in complete sentences Auscultation: clear to auscultation bilaterally Cardio Jugular venous pressure: no JVD Rate: regular rate GI Palpation: soft and nontender Back/Spine/Pelvis Back: no CVA tenderness Skin General skin exam: jaundice Neuro General: patient alert and patient oriented x3 Extrem General: normal to inspection Psych Mental Status: mental status grossly normal Course Vital Signs Vital signs: Vital Signs Temperature 36.6 C 12/30/24 09:21 Pulse 85 12/30/24 09:21 Respiratory Rate 16 12/30/24 09:21 Blood Pressure 156/84 H 12/30/24 09:21 Pulse Oximetry 98 12/30/24 09:21 Temperature 36.6 C 12/30/24 09:21 Temperature Source Oral 12/30/24 09:21 Pulse 85 12/30/24 09:21 Respiratory Rate 16 12/30/24 09:21 Blood Pressure 156/84 H 12/30/24 09:21 Pulse Oximetry 98 12/30/24 09:21 Oxygen Delivery Method Room Air 12/30/24 09:21 Oxygen Flow Rate 0 12/30/24 09:21 Pain Level 0 12/30/24 10:03 Lab/Test Results Lab/Test Results: Laboratory Tests Range/Units 12/30/24 09:39 Urine Color (Yellow) Scott Urine Clarity (Clear) Clear Urine pH (5-8) 7.5 Ur Specific [place] (1.005-1.025) 1.015 Urine Protein (Neg-Trace) mg/dL Negative Urine Ketones (Negative) mg/dL Negative Urine Blood (Negative) Negative Urine Nitrite (Negative) Negative Urine Bilirubin (Negative) Large H Urine Urobilinogen (Up to 0.2) mg/dL 4.0 H Ur Leukocyte Esterase (Negative) Trace H Urine RBC (0-2) HPF 0-2 Urine WBC (0-5) HPF 3-5 Ur Epithelial Cells (Negative) HPF Moderate Urine Crystals (Negative) HPF Negative Urine Bacteria (Negative) HPF Few Urine Casts (Negative) LPF Negative Urine Mucus (Negative) Trace Urine Other (Negative) Negative Ur Culture Indicated? No Urine Glucose (Negative) mg/dL 100 H Medical Decision Making 64-year-old female comes in with 3 weeks of persistent cough and has also noticed some blood in her urine. She denies any fevers, difficulty breathing, chest pain, severe back pain or abdominal pain. She is well-appearing on exam speaking in full sentences. She has clear lung sounds, no JVD, no axillary calf tenderness. She has a soft nontender abdomen and no CVA tenderness. Patient isn oted to have jaundice of her face and she is not sure if this is new. Given her complaints we will check a [id number] flu and COVID and also obtain a chest x-ray. Given her complaints of blood in your urine we will also obtain UA. Will check cbc and cmp given her jaundice Patient with hyperbilirubinemia, total bilirubin 14, conjugated 9. Also has elevated AST and ALT. She states she has only 1 alcoholic beverage every night. Hemodynamically stable, I obtained a CT abdomen pelvis which showed likely fatty infiltration of the liver. Also has edematous gallbladder. She has no abdominal tenderness on exam. Recommend a follow-up ultrasound which I ordered. She has no abdominal tenderness or lancaster's sign so doubt cholecystitis Ultrasound shows normal-appearing gallbladder, patient stable. Given the elevated bilirubin we will discuss her case with gastroenterology at [facility]. PAtient states she has one drink of alcohol at night daily and denies using acetaminophen i spoke with Dr. Parra from GI at [facility] Who reviewed the case and did not feel she needed acute transfer based on her presentation. He recommended adding on some autoimmune studies. These are send out will not be back. I discussed this with the patient and I did recommend she stay overnight for observation to trend her INR and LFTs because if these worsen she may need to be transferred. She has decision-making capacity and understands the risks of leaving including worsening liver dysfunction which could lead to potential disability and potential and she is willing to accept these risks. She is leaving AGAINST MEDICAL ADVICE. I did recommend that she follow-up with her PCP as soon as possible and I placed her on a follow-up list to help expedite this. She understands she can return anytime if she changes her mind. Differential Diagnosis Differential Diagnosis: URI, pneumonia, UTI Imaging Data Radiologic Study: Attestation: I personally reviewed and interpreted this imaging study as follows: Imaging: CT Scan Radiologist's impression: Patient Name: Delmy Horton Unit #: [id number] Loc: ER Ordering Provider: Miles Wasserman M.D. Status: [facility] ER Primary Care Provider: Fernando Garcia Date of Exam: 12/30/24 Sex: F : 1960 Age: 64 Exam(s) a CT:CT abdomen & pelvis w Exam(s) CT ABDOMEN PELVIS W EXAM: CT ABDOMEN PELVIS W CLINICAL HISTORY: elevated lft's/bilirubin. TECHNIQUE: Imaging Protocol: Axial computed tomography images with coronal and sagittal reformatted images were created and reviewed CONTRAST MATERIAL: Intravenous: Omnipaque-350 100cc Oral: None COMPARISON: CR XR CHEST 2V PA LATERAL from 12/30/2024 FINDINGS: VISUALIZED LUNG BASES: No nodules nor pleural effusions evident. ABDOMEN: There is no ascites. LIVER: Liver size mildly prominent and exhibits heterogeneous density throughout both lobes. This may be related to inhomogeneous fatty parenchymal change-steatosis but cannot exclude neoplasm . There are no dilated intrahepatic ducts. GALLBLADDER/BILIARY: Is mild enhancement of the gallbladder wall and mild gallbladder wall thickening. No obvious radiopaque calculi within the gallbladder lumen. The CBD is not dilated. PANCREAS: No evidence of pancreatic mass nor dilatation of the pancreatic duct. SPLEEN: Spleen is not enlarged. No obvious intrasplenic lesions. Splenic and portal veins are patent. ADRENALS: There are no significant adrenal masses. KIDNEYS:No cysts evident. No solid renal masses. No calculi nor hydronephrosis.. ABDOMINAL AORTA: Abdominal aorta is not enlarged. LYMPH NODES:There is no retroperitoneal nor paraaortic adenopathy. ABDOMINAL WALL: No evidence of significant anterior abdominal wall nor inguinal hernia. GI: There is no evidence of bowel obstruction, free air, nor abscess. PELVIS: GI: No evidence of appendicitis.No evidence of sigmoid diverticulitis. LYMPH NODES: There is no intrapelvic nor inguinal adenopathy. REPRODUCTIVE: Uterus and adnexal regions appear unremarkable. No free fluid in the adnexal regions and cul-de-sac. URINARY BLADDER: No calculi nor obvious masses evident OSSEOUS: No fractures and no significant osseous lesions. Chronic degenerative disc disease. No listhesis. IMPRESSION: 1. There is diffuse gallbladder wall edema. No obvious calcified gallstones. CBD is not dilated and there are no dilated intrahepatic ducts. Recommend gallbladder ultrasound. 2. Liver is diffusely heterogeneous in density likely related to imaging is diffuse steatosis but cannot exclude hepatitis or also possibly diffuse neoplastic involvement.. 3. There is no ascites. Radiologic Study #2: Attestation: I personally reviewed and interpreted this imaging study as follows: Imaging: Ultrasound Radiologist's impression: IMPRESSION: 1. No evidence of cholelithiasis nor dilatation of the biliary tree. Gallbladder wall is only minimally prominent on ultrasound. There is no pericholecystic fluid. No gallbladder distension. The CBD is not dilated. 2. Heterogeneous/hyperechoic echotexture of the slightly enlarged liver 3. No other right upper quadrant ultrasound findings and there is no ascites. Lab Data Lab results reviewed: Yes I reviewed the patient's lab results. Quality:SDOH Health Related Social Needs: No Data to Display PFSH All Active Problems (Updated 12/30/24 @ 15:54 by Miles Wasserman MD) Hyperbilirubinemia (Acute) Osteoarthritis of left knee (Acute) Status post total knee replacement, right (Acute 05/17/20) Knee pain (Acute) Knee pain (Acute) Patellofemoral syndrome of both knees (Acute) Right > Left Osteoarthritis of right knee (Chronic) Medical History Asthma History of esophageal reflux Osteoarthritis of left knee Surgical History History of tonsillectomy and adenoidectomy Hx of wisdom tooth extraction Status post emergency hysterectomy pt. denies Social History Smoking/Tobacco Use Status: Former Tobacco Use Quit Date: 11/19/96 Smoking risk assessment performed?: Yes Alcohol Intake: current Alcohol Intake frequency: 0-2 drinks per day Drug use: Never Substance use type: does not use Housing: house Current gender identity: female Do you feel safe at home: Yes Do you feel safe in your relationship?: Yes
[2024-12-30 11:48] LABS: Abs Immature Grans 0.05 10^3/uL (0.0-0.06); Absolute Basophil Count 0.08 10^3/uL (0.0-0.2); Absolute Eosinophil Count 0.18 10^3/uL (0.0-0.7); Absolute Lymphocyte Count 1.71 10^3/uL (1.2-3.4); Absolute Monocyte Count 1.02 10^3/uL (0.1-0.8); Absolute Neutrophil Count 7.79 10^3/uL (1.2-6.7); Basophils % 0.7 %; Eosinophils % 1.7 %; HCT 37.6 % (36.0-46.0); HGB 12.8 g/dL (11.2-15.7); Immature Grans % 0.5 %; Lymphocytes % 15.8 %; MCH 34.9 pg (27.0-33.0); MCV 103 fL (80-95); Monocytes % 9.4 %; Neutrophils % 71.9 %; Platelet Count 181 10^3/uL (130-400); RBC 3.67 10^6/uL (3.93-5.22); RDW 17.1 % (11.7-14.6); RDW-SD 64.2 fL; WBC 10.83 10^3/uL (4.4-10.8)
[2024-12-30 12:07] LABS: ALT 84 U/L (14-59); AST 190 U/L (15-37); Albumin 2.6 g/dL (3.4-5.0); Alkaline Phosphatase 187 U/L (46-116); Anion Gap 4.8 mmol/L (3-11); BUN 7 mg/dL (7-18); Bilirubin, Direct 9.8 mg/dL (0.0-0.2); Bilirubin, Total 14.44 mg/dL (0.2-1.0); CO2 30.2 mmol/L (21.0-32.0); CREATININE 0.6 mg/dL (0.55-1.02); Calcium 8.8 mg/dL (8.5-10.1); Chloride 104 mmol/L (98-107); Estimated GFR 99.55 (mL/min/1.73m2); Glucose 101 mg/dL (74-106); Magnesium 1.7 mg/dL (1.8-2.4); Potassium 3.6 mmol/L (3.5-5.1); Sodium 139 mmol/L (136-145); Total Protein 6.8 g/dL (6.4-8.2)
--- NOTE | 2024-12-30 12:15 | DI.CT_ITS ---
Exam(s) CT ABDOMEN PELVIS W EXAM: CT ABDOMEN PELVIS W CLINICAL HISTORY: elevated lft's/bilirubin. TECHNIQUE: Imaging Protocol: Axial computed tomography images with coronal and sagittal reformatted images were created and reviewed CONTRAST MATERIAL: Intravenous: Omnipaque-350 100cc Oral: None COMPARISON: CR XR CHEST 2V PA LATERAL from 12/30/2024 FINDINGS: VISUALIZED LUNG BASES: No nodules nor pleural effusions evident. ABDOMEN: There is no ascites. LIVER: Liver size mildly prominent and exhibits heterogeneous density throughout both lobes. This ma y be related to inhomogeneous fatty parenchymal change-steatosis but cannot exclude neoplasm . There are no dilated intrahepatic ducts. GALLBLADDER/BILIARY: Is mild enhancement of the gallbladder wall and mild gallbladder wall thickening . No obvious radiopaque calculi within the gallbladder lumen. The CBD is not dilated. PANCREAS: No evidence of pancreatic mass nor dilatation of the pancreatic duct. SPLEEN: Spleen is not enlarged. No obvious intrasplenic lesions. Splenic and portal veins are paten t. ADRENALS: There are no significant adrenal masses. KIDNEYS:No cysts evident. No solid renal masses. No calculi nor hydronephrosis.. ABDOMINAL AORTA: Abdominal aorta is not enlarged. LYMPH NODES:There is no retroperitoneal nor paraaortic adenopathy. ABDOMINAL WALL: No evidence of significant anterior abdominal wall nor inguinal hernia. GI: There is no evidence of bowel obstruction, free air, nor abscess. PELVIS: GI: No evidence of appendicitis.No evidence of sigmoid diverticulitis. LYMPH NODES: There is no intrapelvic nor inguinal adenopathy. REPRODUCTIVE: Uterus and adnexal regions appear unremarkable. No free fluid in the adnexal regions a nd cul-de-sac. URINARY BLADDER: No calculi nor obvious masses evident OSSEOUS: No fractures and no significant osseous lesions. Chronic degenerative disc disease. No listhesis. IMPRESSION: 1. There is diffuse gallbladder wall edema. No obvious calcified gallstones. CBD is not dilated and there are no dilated intrahepatic ducts. Recommend gallbladder ultrasound. 2. Liver is diffusely heterogeneous in density likely related to imaging is diffuse steatosis but can not exclude hepatitis or also possibly diffuse neoplastic involvement.. 3. There is no ascites. Findings discussed by phone with ER physician 12/30/2024 at 2:10 p.m. RADIATION DOSE DELIVERED: 725.64mGy.cm Total DLP DATA REPOSITORY: All CT scans at this facility are submitted to the National Radiology Data Registry (NRDR) Dose Index Registry (DIR) with the [employer] (ACR). RADIATION OPTIMIZATION: All CT scans at this facility use at least one of these dose optimization te chniques: automated exposure control; mA and/or kV adjustment per patient size (includes targeted exa ms where dose is matched to clinical indication); or iterative reconstruction.
[2024-12-30 13:00] LABS: INR 1.3 (0.9-1.1); PTT Activated 27.4 sec (20.6-30.2); Prothrombin Time 12.7 sec (9.1-11.1)
[2024-12-30 13:11] LABS: Procalcitonin 0.17 ng/mL
[2024-12-30] MEDS: Normal Saline - Diluent 50 ML VIAL IJ (13:35)
[2024-12-30] MEDS: Omnipaque 350 MG/ML 100 ML BTL IJ (13:36)
--- NOTE | 2024-12-30 14:00 | DI.US_ITS ---
Exam(s) US ABDOMEN LIMITED EXAM: US ABDOMEN LIMITED CLINICAL HISTORY: ?cholecystitis TECHNIQUE: Ultrasound abdomen performed using standard protocol. COMPARISON: US US OR ANESTHESIA from 05/17/[address] ABDOMEN PELVIS W from 12/30/2024 FINDINGS: There is no ascites evident. LIVER: Liver is enlarged exhibits heterogeneous and hyperechoic echotexture consistent with probable steatosis. There no discrete focal discernible lesions. No cysts. Portal vein is patent. GALLBLADDER/BILIARY: There are no gallstones. The gallbladder wall thickness is minimally prominent. There is no pericholecystic fluid. The common hepatic duct isnot dilated, measuring 5mm at the level of renata hepatis. PANCREAS: There is no evidence of pancreatic mass nor dilatation of the pancreatic duct. RIGHT KIDNEY:No evidence of solid mass, calculus, nor hydronephrosis. No cortical cysts evident. IMPRESSION: 1. No evidence of cholelithiasis nor dilatation of the biliary tree. Gallbladder wall is only minim ally prominent on ultrasound. There is no pericholecystic fluid. No gallbladder distension. The CB D is not dilated. 2. Heterogeneous/hyperechoic echotexture of the slightly enlarged liver 3. No other right upper quadrant ultrasound findings and there is no ascites. Discussed by phone with ER physician 12/30/2024 at 3:40 p.m. DATA REPOSITORY:
[2024-12-30 16:49] VITALS: BP 126/82; PULSE 72; RESP 18; TEMP 36.6; O2SAT 99
[2024-12-30 16:50] LABS: Iron 125 ug/dL (50-170); Total Iron Binding Capacity 97 ug/dL (250-450); Transferrin Sat 129 % (15-50)
[2024-12-31 10:11] LABS: Hepatitis A Antibody IgM Negative (Negative); Hepatitis B Core Antibody Negative (Negative); Hepatitis B surface Ag Negative (Negative); Hepatitis C Ab w Rflx HCV PCR Negative (Negative)
[2025-01-01 09:45] LABS: Alpha 1 Antitrypsin,Serum 214 mg/dL (90-200)
[2025-01-01 10:04] LABS: IgA 662 mg/dL (85-499); IgG 1291 mg/dL (610-1616); IgM 180 mg/dL (35-242)
[2025-01-02 12:55] LABS: Smooth Muscle Ab Screen Negative (Negative)
[2025-01-02 15:46] LABS: Mitochondrial Ab, M2 <0.1 U
== END 2024-12-30 17:06 | disposition left against medical advice (07) ==
PROVIDERS: Emergency Provider Emergency Medicine; PCP Family Medicine
DX: E80.6 Other disorders of bilirubin metabolism (principal); R16.0 Hepatomegaly, not elsewhere classified; F10.90 Alcohol use, unspecified, uncomplicated; Z53.21 Procedure and treatment not carried out due to patient leaving prior to being seen by health care provider
CPT/HCPCS: 80053; 82784; 83516; 84145; 86039; 86704; 86709; 86803; 87340; 99285; 71046; 74177; 76705; 81003; 81015; 82103; 82248; 83540; 83550; 83735; 85025; 85610; 85730; 86255; 99284; J3490

== ENCOUNTER 2025-01-02 10:47 | Outpatient (CLI) | payer MEDICARE, SELFPAY ==
[2025-01-02 12:47] LABS: ALT 61 U/L (14-59); AST 150 U/L (15-37); Albumin 2.4 g/dL (3.4-5.0); Alkaline Phosphatase 155 U/L (46-116); Anion Gap 6.3 mmol/L (3-11); BUN 9 mg/dL (7-18); CO2 28.7 mmol/L (21.0-32.0); CREATININE 0.6 mg/dL (0.55-1.02); Calcium 9.1 mg/dL (8.5-10.1); Chloride 105 mmol/L (98-107); Estimated GFR 99.55 (mL/min/1.73m2); GGT 585 U/L (5-55); Glucose 93 mg/dL (74-106); Potassium 3.7 mmol/L (3.5-5.1); Sodium 140 mmol/L (136-145); Total Protein 6.6 g/dL (6.4-8.2)
[2025-01-02 12:49] LABS: Abs Immature Grans 0.06 10^3/uL (0.0-0.06); Absolute Basophil Count 0.11 10^3/uL (0.0-0.2); Absolute Lymphocyte Count 1.31 10^3/uL (1.2-3.4); Absolute Monocyte Count 0.91 10^3/uL (0.1-0.8); Absolute Neutrophil Count 7.74 10^3/uL (1.2-6.7); Basophils % 1.1 %; HCT 34.8 % (36.0-46.0); HGB 11.7 g/dL (11.2-15.7); Immature Grans % 0.6 %; Lymphocytes % 12.8 %; MCH 35.1 pg (27.0-33.0); MCHC 33.6 % (32.0-36.0); MCV 105 fL (80-95); Monocytes % 8.9 %; Neutrophils % 75.6 %; Platelet Count 184 10^3/uL (130-400); RBC 3.33 10^6/uL (3.93-5.22); RDW 17.6 % (11.7-14.6); WBC 10.23 10^3/uL (4.4-10.8)
[2025-01-02 13:23] LABS: INR 1.3 (0.9-1.1); Prothrombin Time 13.2 sec (9.1-11.1)
[2025-01-02 13:25] LABS: Bilirubin, Total 22.07 mg/dL (0.2-1.0)
[2025-01-02 14:52] LABS: Bilirubin, Direct 17.4 mg/dL (0.0-0.2)
== END 2025-01-02 10:48 | disposition home or self-care (01) ==
LOC: LOS 10:47
PROVIDERS: PCP Family Medicine; Referring Provider Family Medicine; Visit Provider Family Medicine
DX: B17.9 Acute viral hepatitis, unspecified (principal); Z00.00 Encounter for general adult medical examination without abnormal findings; K72.00 Acute and subacute hepatic failure without coma; E80.6 Other disorders of bilirubin metabolism
CPT/HCPCS: 36415; 80053; 82248; 82977; 85025; 85610

== ENCOUNTER 2025-01-05 11:48 | Outpatient (CLI) | payer MEDICARE, SELFPAY ==
[2025-01-07 08:27] LABS: PEth 16:0/18:1(POPEth) 130 ng/mL (Cutoff: 10); PEth 16:0/18:2(PLPEth) 107 ng/mL (Cutoff: 10); PEth Interpretation Positive.
== END 2025-01-05 11:49 | disposition home or self-care (01) ==
LOC: LBO 11:49
PROVIDERS: PCP Family Medicine; Visit Provider Family Medicine
DX: K72.00 Acute and subacute hepatic failure without coma (principal)
CPT/HCPCS: 36415; 80321

== ENCOUNTER 2025-01-09 00:44 | Outpatient (CLI) | payer MEDICARE, SELFPAY ==
[2025-01-09 11:51] LABS: INR 1.4 (0.9-1.1); Prothrombin Time 13.7 sec (9.1-11.1)
[2025-01-09 12:05] LABS: ALT 85 U/L (14-59); AST 224 U/L (15-37); Albumin 2.1 g/dL (3.4-5.0); Alkaline Phosphatase 150 U/L (46-116); Anion Gap 8.4 mmol/L (3-11); BUN 10 mg/dL (7-18); CO2 26.6 mmol/L (21.0-32.0); CREATININE 0.7 mg/dL (0.55-1.02); Calcium 9.2 mg/dL (8.5-10.1); Chloride 105 mmol/L (98-107); Estimated GFR 95.92 (mL/min/1.73m2); Glucose 117 mg/dL (74-106); Potassium 3.1 mmol/L (3.5-5.1); Sodium 140 mmol/L (136-145); Total Protein 6.5 g/dL (6.4-8.2)
[2025-01-09 12:22] LABS: Bilirubin, Total 19.68 mg/dL (0.2-1.0)
== END 2025-01-09 00:45 | disposition home or self-care (01) ==
LOC: LBO 00:45
PROVIDERS: PCP Family Medicine; Visit Provider Family Medicine
DX: K70.10 Alcoholic hepatitis without ascites (principal); Z00.00 Encounter for general adult medical examination without abnormal findings
CPT/HCPCS: 36415; 80053; 85610

== ENCOUNTER 2025-02-12 10:38 | Outpatient (CLI) | payer MEDICARE, SELFPAY ==
[2025-02-12 12:13] LABS: Abs Immature Grans 0.01 10^3/uL (0.0-0.06); Absolute Basophil Count 0.13 10^3/uL (0.0-0.2); Absolute Eosinophil Count 0.65 10^3/uL (0.0-0.7); Absolute Lymphocyte Count 1.66 10^3/uL (1.2-3.4); Absolute Neutrophil Count 4.03 10^3/uL (1.2-6.7); Basophils % 1.8 %; Eosinophils % 9.2 %; HCT 40.9 % (36.0-46.0); HGB 13.2 g/dL (11.2-15.7); Immature Grans % 0.1 %; Lymphocytes % 23.4 %; MCH 34.7 pg (27.0-33.0); MCHC 32.3 % (32.0-36.0); MCV 108 fL (80-95); MPV 10.4 fL (8.0-11.0); Monocytes % 8.5 %; Platelet Count 137 10^3/uL (130-400); RDW 12.3 % (11.7-14.6); RDW-SD 49.1 fL; WBC 7.08 10^3/uL (4.4-10.8)
[2025-02-12 12:27] LABS: INR 1.4 (0.9-1.1); Prothrombin Time 13.9 sec (9.1-11.1)
[2025-02-12 12:47] LABS: Diff Comment RBC Morph Reviewed; Macrocytosis 1+
[2025-02-12 13:02] LABS: ALT 55 U/L (14-59); AST 101 U/L (15-37); Albumin 2.7 g/dL (3.4-5.0); Alkaline Phosphatase 90 U/L (46-116); BUN 10 mg/dL (7-18); Bilirubin, Direct 3.5 mg/dL (0.0-0.2); Bilirubin, Total 4.5 mg/dL (0.2-1.0); CREATININE 0.8 mg/dL (0.55-1.02); Calcium 9.5 mg/dL (8.5-10.1); Chloride 108 mmol/L (98-107); Estimated GFR 81.72 (mL/min/1.73m2); Glucose 126 mg/dL (74-106); Potassium 3.7 mmol/L (3.5-5.1); Sodium 143 mmol/L (136-145); Total Protein 7.3 g/dL (6.4-8.2)
== END 2025-02-12 10:39 | disposition home or self-care (01) ==
PROVIDERS: PCP Family Medicine; Visit Provider Internal Medicine
DX: K70.10 Alcoholic hepatitis without ascites (principal); R79.89 Other specified abnormal findings of blood chemistry
CPT/HCPCS: 36415; 80048; 80061; 80076; 86803; 87389; 85025; 85610

== ENCOUNTER 2025-02-20 00:30 | Outpatient (CLI) | payer MEDICARE, SELFPAY ==
--- NOTE | 2025-02-20 06:45 | DI.MAMMO_ITS ---
Exam(s) MAMMO SCREENING EXAM: MAMMO SCREENING CLINICAL HISTORY: screening,z12.39 TECHNIQUE: Mammograms were interpreted according to the usual protocol including computer analysis w [employer] CAD system, tomosynthesis and C-view imaging. COMPARISON: No exams were available for comparison. The patient's prior mammogram were performed mo re than 10 years ago. FINDINGS: The breasts are composed of scattered fibroglandular densities, Breast Density category B. No suspicious masses or suspicious microcalcifications are seen. No skin thickening or abnormal axillary lymph nodes are seen. IMPRESSION: BI-RADS Category 1, Negative mammogram Yearly screening mammography is recommended. Breast Density - Category B, scattered fibroglandular densities. A negative radiographic report should not delay biopsy if a dominant or clinically suspicious mass is present. Up to ten percent of cancers are not identified on mammography. A negative report may reinforce clinical impression. Adenosis and dense breasts may obscure an underlying neoplasm. False positive reports average 6 to 10%. Patient will receive a letter notifying them of these results.
== END 2025-02-20 00:50 ==
LOC: DI 00:31
PROVIDERS: PCP Family Medicine; Visit Provider Family Medicine
DX: Z12.31 Encounter for screening mammogram for malignant neoplasm of breast (principal); R92.323 Mammographic fibroglandular density, bilateral breasts
CPT/HCPCS: 77063; 77067

== ENCOUNTER → 2025-03-26 14:12 | Outpatient (BNVA) | payer MEDICARE, SELFPAY | PROVIDERS: PCP Family Medicine; Referring Provider Family Medicine; Visit Provider Surgery | DX: Z12.11 Encounter for screening for malignant neoplasm of colon (principal); R19.5 Other fecal abnormalities ==

== ENCOUNTER 2025-03-30 11:01 | Day surgery (SDC) | payer MEDICARE, SELFPAY ==
--- NOTE | 2025-03-29 19:34 | PDOC.DSDIS_ITS ---
Date of service: 03/30/25 Discharge Plan Disposition Patient Disposition: Home Condition: Good Discharge Details Reason For Visit: screening colonoscopy Attending Provider: Otoniel Sherman Primary Care Provider: Serena Castro Home Meds and New Rx's Prescriptions: Continued pantoprazole 20 mg tablet,delayed release (DR/EC) 20 mg PO QDAY PRN (Reason: acid reflux) Patient Comments: TAKE ONE TABLET BY MOUTH EVERY DAY Ensure Liquid 240 ml PO BID zinc sulfate [Orazinc] 50 mg zinc (220 mg) capsule 50 mg PO DAILY Discontinued polyethylene glycol 3350 17 gram/dose powder 238 g PO ONCE Qty: 238 0RF Rx Instructions: take per colonoscopy instructions bisacodyl [Dulcolax (bisacodyl)] 5 mg tablet,delayed release (DR/EC) 5 mg PO ONCE Qty: 4 0RF Rx Instructions: take per colonoscopy instructions Discharge Instructions Instructions: Colon polyps Additional Instructions: Delmy, I hope you make a quick recovery from the procedure. Things went very smoothly. Your prep was excellent, and I could see everything fine. I did find, and removed 3 polyps today. All of these will be sent off to the pathologist for further review since polyps do come in different varieties, and we use that information to help guide timing of future colonoscopies. If you need anything or have any questions at all, please do not hesitate to ask, otherwise we will be in touch once the polyp report is available. 1. If tolerated, consume a soft, low fiber diet for 1-2 days. 2[address] Do not drive, drink alcohol, operate machinery, make critical decisions, or do activities that require coordination or balance for 24 hours. 3. Because air was put into your colon during the procedure, expelling air from your rectum (passing gas or farting) is normal. 4. You may not have a bowel movement for 1-3 days because of the colonoscopy prep. This is normal. 5. Go directly to the emergency room if you notice any of the following: Develop chills (warm to touch), or if you have a thermometer and your temperature is above 101 Difficulty breathing or difficultly swallowing Persistent vomiting Severe abdominal pain, other than gas cramps Severe chest pain Black, tarry stools Any bleeding ? exceeding one tablespoon 6. Call your physician if the site where your intravenous was started becomes red, swollen, painful, and warm to touch. 7. Your physician has reviewed your pre-procedure medications. Please continue to take those medications as previously ordered. You will be given specific i nformation/education regarding any changes to your medications before leaving. Stand Alone Forms: Anesthesia Discharge Inst., Colonoscopy Post Instructions, Hafsa Rose (DSU) Activity:: Activity as Tolerated Diet:: As Tolerated Discharge Orders Discharge Orders: Discharge Order (Routine); Ordered 03/29/25 Ordered By: Otoniel Sherman DS: Diagnosis Discharge Diagnosis (1) Positive colorectal cancer screening using Cologuard test: Status: Acute Asessment and Plan: Follow-up on polypectomy results
--- NOTE | 2025-03-29 19:35 | W.COLOREPORT ---
Date of service: 03/30/25 Time of Service: 14:15 Colonoscopy Report Date of procedure: 03/30/25 Pre-op diagnosis general: screening colonoscopy Post-op diagnosis procedure note: other (Colon polyps) Procedure: colonoscopy with polypectomy Surgeon: Otoniel Sherman Anesthesia Type: General:No Airway Estimated blood loss (mL): 10 Pathology: other (0.25 cm flat polyp at 100 cm, 0.25 cm flat polyp at 45 cm, 0.5 cm polyp at 40 cm) Complications: None Disposition: same day Indications: Delmy is a 65 year old woman with a positive cologuard test. She needs a follow up screening colonoscopy Prep: Miralax/Dulcolax Procedure Start Time: 13:32 Procedure End Time: 13:58 Retraction Time: 21 Findings: 0.25 cm flat polyp at 100 cm, 0.25 cm flat polyp at 45 cm, 0.5 cm polyp at 40 cm Procedure Description: After the induction of anesthesia, and with Delmy in left lateral decubitus position, I began by performing an external anorectal exam.? Perineum and skin were normal, as was the anal verge.? There was no evidence of external hemorrhoids.? Next, I performed a digital rectal exam.? I did not appreciate any abnormal findings.? Next, I advanced a colonoscope into the rectal vault.? I performed retroflexion.? This appeared normal.? Using insufflation, I then advanced the colonoscope beyond the rectal folds and into the sigmoid colon before advancing towards the cecum. The scope was noted to be in the cecum by identification of the ileocecal valve and appendiceal orifice.? I then began withdrawing the colonoscope using repeated irrigation as necessary for full evaluation of the colonic mucosa. Around 100 cm from the anal verge was a 0.25 cm flat polyp. This was removed with cold forceps with minimal bleeding. Another flat polyp was found at 45 cm from the anus. This was also removed with cold forceps without any issues. I would estimate this to be about 0.25 cm as well. Just a short distance away, around 40 cm from the anal verge was slightly larger also flat polyp. I would estimate this to be slightly closer to 0.5 cm. This was removed with forceps, with a modest amount of bleeding. This was controlled with electrocautery without issues. Once the scope was withdrawn to the level of the rectum, great care was taken to examine portions of the rectal folds.? Finally, the scope was withdrawn and the patient was brought to the same-day surgery recovery unit as the anesthetic wore off. ?The findings and instructions were shared with the patient prior to discharge. [place] Bowel Prep [place] Bowel Prep Right Colon: 3 Left Colon: 3 Transverse Colon: 3 Total Score: 9
--- NOTE | 2025-03-30 06:56 | ANES.PREOP_ITS ---
General Info Date of Service Date Performed: 03/30/25 Height: 5 ft 4 in Weight: 97.2 kg Body Mass Index (BMI): 36.8 Surgical Procedure: Operation Date: 03/30/25 12:50 Proposed Procedure Side Surgeon p Anneliese Sherman MD Meds Allergies and Home Medications Allergies Allergy/AdvReac Type Severity Reaction Status Date / Time No Known Allergies Allergy Verified 03/26/25 14:18 Home Medication ?Medication ?Instructions ?Recorded pantoprazole 20 mg tablet,delayed 20 mg PO QDAY PRN acid reflux 01/23/25 release food supplemt, lactose-reduced 240 ml PO BID 03/26/25 (Ensure oral liquid) zinc sulfate 50 mg zinc (220 mg) 50 mg PO DAILY 03/26/25 capsule (Orazinc) Current Visit Medications: Current Medications Generic Name Dose Route Start Last Admin Trade Name Freq PRN Reason Stop Dose Admin Ringer's Solution 1,000 mls @ 80 mls/hr 03/30/25 06:00 IV 04/26/25 23:59 [facility] IV Miscellaneous Supplies 1 each 03/30/25 06:00 Iv Access IV 04/26/25 23:59 DIRECTED ANUJA Ondansetron HCl 4 mg 03/29/25 19:36 Ondansetron 4 Mg/2 Ml Vial IVP 04/28/25 19:35 Q4H PRN PRN Nausea / Vomiting Sodium Chloride 0 ml 03/30/25 06:00 Normal Saline Flush 10 Ml Syr IV 04/26/25 23:59 PRN PRN Sodium Chloride 0 ml 03/30/25 06:00 Normal Saline 10 Ml Vial IJ 04/26/25 23:59 DIRECTED PRN Sterile Water 0 ml 03/30/25 06:00 Water,Injection,Sterile 10 Ml Vial IJ 04/26/25 23:59 DIRECTED PRN PFSH Active Problems Active Problems: Problem Status Onset Code Positive colorectal cancer screening using Cologuard test Acute R19.5 Alcoholic hepatitis without ascites Acute K70.10 Weight loss, non-intentional Acute R63.4 Obesity without serious comorbidity Acute E66.9 Medical History Medical History Hx of Lyme disease (~2018) managed at [facility]; gets intermittent confusion History of esophageal reflux Asthma Patellofemoral syndrome of both knees Right > Left Surgical History Surgical History S/P emergency Status post total knee replacement, right (05/17/20) History of tonsillectomy and adenoidectomy Hx of wisdom tooth extraction Tobacco Smoking/Tobacco Use Status: Former Tobacco Use Second hand exposure: No Alcohol Alcohol Intake: former Substance Use Substance use: Never Substance use type: does not use Vital Signs and Lab Results Vital Signs Most Recent Vital Signs in EMR: Temp Pulse Resp BP Pulse Ox 36.4 C L 74 16 129/59 L 99 03/30/25 11:38 03/30/25 11:38 03/30/25 11:38 03/30/25 11:38 03/30/25 11:38 Vital Signs Comment Vital Signs Comment:: Temp Pulse Resp BP Pulse Ox 36.4 C L 74 16 129/59 L 99 03/30/25 11:38 03/30/25 11:38 03/30/25 11:38 03/30/25 11:38 03/30/25 11:38 Lab Results Blood Type / Crossmatch: No Data to Display Complete Blood Count: No Data to Display Complete Metabolic Panel: No Data to Display Liver Function Panel: No Data to Display Coagulation Panel: No Data to Display Cardiac Panel: No Data to Display Arterial Blood Gas: No Data to Display Venous Blood Gas: No Data to Display Pancreas Panel: No Data to Display Thyroid Panel: No Data to Display Infectious Disease: HIV (1&2) Ag and Ab, 4th Generation Negative 03/09/25 15: 00 Hepatitis C Antibody Negative 03/09/25 15:00 Blood Cultures: No Data to Display Toxicology Panel: No Data to Display Anesthesia Assessment and Plan Anesthesia History Personal History: No History of Anesthesia Complications Family History: No Family History of Anesthesia Complications Exercise Tolerance Exercise Tolerance: Metabolic Equivalents>4 Pertinent Negatives Pertinent Negatives: No Symptoms of GERD, No Major Cardiovascular Symptoms or Complaints and No Major Pulmonary Symptoms or Complaints Cardiac & Pulmonary Exam Cardiac Exam: Normal S1/S2 Heart Sounds Pulmonary Exam: Clear Bilateral Breath Sounds Implantable Cardiac Device Does patient have a Pacemaker or an ICD?: No Airway Exam Known Difficult Airway: No Mallampati Class: 4 Mouth Opening: Normal (> 3cm) Thyromental Distance: Greater than 3 cm Neck Range of Motion: Full ROM Neck Circumference: Normal Teeth Condition: Generalized Poor Dentition ASA Classification ASA Score: ASA 2 Emergency Case?: No NPO Status NPO Status: NPO Clears >2 hours, Solids >8 hours Anesthesia Plan Resuscitation Status: Full Code Anesthesia Technique: General Anesthesia Airway Planned: Natural Airway Monitors Used: Standard Monitors Preoperative Comments:: 65 yo female for colo. Sig PMHx: Asthma, reflux (pantoprazole), alcoholic hepatitis. former smoker.
[2025-03-30 11:38] VITALS: BP 129/59; PULSE 74; RESP 16; TEMP 36.4; O2SAT 99
[2025-03-30] MEDS: Lactated Ringers 1,000 ML 80 ML IV (12:10)
--- NOTE | 2025-03-30 13:45 | BOWEL_PTH ---
PATIENT: Delmy Horton LOC: [facility] U#:[id number] AGE/SX: 65/F ROOM: RE03/30/[address]: Otoniel Sherman MD : 1960 BED: DIS: 03/30/2025 SPEC #: [id number] RECD: 03/30/25 17:50 STATUS: ROSALIO REQ #: [id number] TELMA: 03/30/25 13:[address]: Otoniel Sherman DEPT: Surgical Specimen RECD BY: Dominique Kulkarni ENTERED: 03/30/25 17:51 SP TYPE: Bowel OTHR DR: Serena Castro Tissues: 1 - BIOPSY BOWEL 2 - BIOPSY BOWEL 3 - BIOPSY BOWEL Procedures: GROSS AND MICRO LEVEL 4 Comments: [id number]
[2025-03-30 13:51] VITALS: BMI 36.8
[2025-03-30 14:05] VITALS: BP 103/60; PULSE 83; RESP 16; TEMP 36.5; O2SAT 95
[2025-03-30 14:33] VITALS: BP 121/60; PULSE 79; RESP 14; TEMP 36.6; O2SAT 99
--- NOTE | 2025-03-30 14:36 | W.ANESPOSTOP ---
Postoperative Evaluation Date, Time and Location Date Performed: 03/30/25 Time Performed: 14:06 Patient Location: Day Surgery Unit Vital Signs Most Recent Imported Vital Signs: Most Recent Vital Signs Temp Pulse Resp BP Pulse Ox 36.6 C 79 14 121/60 99 03/30/25 14:33 03/30/25 14:33 03/30/25 14:33 03/30/25 14:33 03/30/25 14:33 Pain Score Most Recent Pain Score: Most Recent Pain Score Pain Level 0 03/30/25 14:33 Assessment Mental Status: Awake (Alert & Oriented to Patient Baseline) Airway and Respiratory Function: Patent airway with normal (patient baseline) respiratory exam Cardiovascular Function: Hemodynamically Stable Hydration Status: Adequately Hydrated Nausea & Vomiting: No Nausea or Vomiting Pain: Pt. Denies Any Pain Peripheral Nerve Block: Patient did not receive a nerve block
== END 2025-03-30 14:41 | disposition home or self-care (01) ==
LOC: SUR 11:01
PROVIDERS: PCP Family Medicine; Visit Provider Surgery
PROC: 0DJD8ZZ Inspection of Lower Intestinal Tract, Via Natural or Artificial Opening Endoscopic (ICD-10-PCS; CPT 45378; principal; 2025-03-30 12:45)
DX: Z12.11 Encounter for screening for malignant neoplasm of colon (principal); D12.5 Benign neoplasm of sigmoid colon
CPT/HCPCS: 45380; 88305; J2704

== ENCOUNTER 2025-04-02 01:15 | Outpatient (CLI) | payer MEDICARE, SELFPAY ==
--- NOTE | 2025-04-02 07:45 | DI.DEXA_ITS ---
Exam(s) XR DEXA BONE DENSITY W/WO WARREN EXAM: XR DEXA BONE DENSITY W/WO WARREN CLINICAL HISTORY: screening for osteoporosis, menopausal disorder, n95.9 TECHNIQUE: COMPARISON: No exams were available for comparison FINDINGS: Lateral Spine Image: Unremarkable. No compression deformities identified. Left hip: Total T-Score: -1.1 Total Z-Score: 0.2 T- and Z-scores: Findings are consistent with osteopenia. Lumbar Spine: Total T-Score: 1.1 Total Z-Score: 2.9 T- and Z-scores: Within normal limits. Evaluation of the left forearm shows a total T-score of -2.9 consistent with osteoporosis. IMPRESSION: 1. No evidence of osteoporosis in the left hip or lumbar spine. 2. Osteoporosis in the left forearm.
== END 2025-04-02 01:35 ==
LOC: DI 01:15
PROVIDERS: PCP Family Medicine; Visit Provider Family Medicine
DX: N95.9 Unspecified menopausal and perimenopausal disorder (principal); M81.0 Age-related osteoporosis without current pathological fracture
CPT/HCPCS: 77080